=== PATIENT | female | born 1985 | race African-American/Black ===

== ENCOUNTER 2017-08-25 23:16 | Emergency (ER) | payer BC ==
[2017-08-25] MEDS ORDERED: DEXAMETHASONE 10 MG/ML VIAL ONE (23:56)
[2017-08-25] MEDS ORDERED: DIPHENHYDRAMINE 50 MG/ML VIAL ONE (23:56)
[2017-08-25] MEDS ORDERED: NA CHLORIDE 0.9% 1,000 ML ONE (23:56)
[2017-08-25] MEDS ORDERED: ONDANSETRON 4 MG/2 ML VIAL ONE (23:56)
[2017-08-26 00:09] LABS: Urine Blood NEGATIVE (NEG); Urine Glucose NEGATIVE (NEG); Urine Protein NEGATIVE (NEG); Urine pH 5.5 (5.0-7.0)
[2017-08-26 00:18] LABS: Urine Bacteria 20-50 /HPF (<20); Urine Culture Reflex Order REFLEXED; Urine RBC NONE SEEN /HPF (NONE SEEN)
[2017-08-26 00:30] LABS: Absolute Lymphocytes (CBC) 0.6 K/uL (0.7-4.9); Absolute Monocytes 0.3 K/uL (0.1-1.3); Absolute Neutrophil 10.1 K/uL (1.8-8.0); Basophils % 0.2 % (0-1.3); Eosinophils % 0.3 % (0-4.4); Hematocrit 35.1 % (36.0-45.0); Lymphocytes % 5.7 % (15.3-44.8); MCH 25.9 pg (27.0-35.0); MCV 79.5 fL (80-100); MPV 8.2 fL (7.6-11.3); RBC Red Blood Cell Count 4.41 M/uL (3.86-4.86)
[2017-08-26 00:44] LABS: Albumin 3.7 g/dL (3.2-5.5); Bilirubin Direct 0.1 mg/dL (0-0.2); Bilirubin Total 0.4 mg/dL (0.3-1.2)
[2017-08-26] MEDS ORDERED: IBUPROFEN 400 MG TAB ONE (02:34)
[2017-08-26 02:50] LABS: Blood Morphology Comment NOT SEEN (NOT SEEN); Platelet Estimate ADEQ; Urine White Blood Cell Casts OK
--- NOTE | 2017-08-26 02:59 | EDPHYS ---
Physician Documentation [facility] Name: Isela Styles Age: 32 yrs Sex: Female : 1985 Arrival Date: 08/25/2017 Time: 23:18 Bed 24 Private MD: Latha Pace Z ED Physician Macario Escamilla HPI: 08/25 23:40 This 32 yrs old Black Female presents to ER via Ambulatory with complaints of Allergic jmm Reaction. 23:40 The patient presents with rash, redness of skin, vomiting. Onset: The symptoms/episode jmm began/occurred acutely, just prior to arrival. Associated signs and symptoms: Pertinent positives: rash, shortness of breath, Pertinent negatives: fever. Patient states she developed vomiting, diarrhea, shortness of breath after ingestion of bactrim. . 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 - Social history:: Smoking status: Patient/guardian denies using tobacco. - Ebola Screening: : No symptoms or risks identified at this time. ROS: 08/26 02:41 Cardiovascular: Negative for chest pain, palpitations, and edema. jmm Skin: Negative for injury, rash, and discoloration, Neuro: Negative for headache, weakness, numbness, tingling, and seizure. Constitutional: Positive for body aches, chills. Respiratory: Positive for shortness of breath. Abdomen/GI: Positive for abdominal pain. Back: Negative for pain at rest. All other systems are negative. 02:43 Abdomen/GI: Positive for nausea and vomiting, diarrhea. jmm Exam: 08/25 23:45 Constitutional: This is a well developed, well nourished patient who is awake, alert, jmm and in no acute distress. Chest/axilla: Normal chest wall appearance and motion. Nontender with no deformity. No lesions are appreciated. 23:45 Cardiovascular: Rate: tachycardic. jmm 23:45 Abdomen/GI: Inspection: abdomen appears normal, Bowel sounds: normal, Palpation: abdomen is soft and non-tender, in all quadrants. 23:45 Musculoskeletal/extremity: ROM: intact in all extremities. 23:45 Skin: Appearance: Color: normal in color. 23:45 Neuro: Orientation: is normal, Mentation: is normal, Memory: is normal, Gait: is steady. Vital Signs: 23:30 BP 135 / 90; Pulse 131; Resp 20; Temp 100.0(TE); Pulse Ox 98% on R/A; Weight 126.1 kg ak1 (R); Height 5 ft. 4 in. (162.56 cm) (R); Pain 08/24; 08/26 00:28 BP 123 / 78; Pulse 117; Resp 18; Pulse Ox 99% on R/A; kr2 01:41 BP 114 / 63; Pulse 107; Resp 18; Pulse Ox 98% on R/A; mb3 02:25 BP 123 / 93; Pulse 112; Resp 18; Pulse Ox 99% on R/A; mb3 02:55 BP 118 / 76; Pulse 102; Resp 18; Pulse Ox 99% ; fc 08/25 23:30 Body Mass Index 47.72 (126.10 kg, 162.56 cm) ak1 MDM: 08/25 23:40 Patient medically screened. [facility] 23:45 Differential diagnosis: allergic reaction, gastroenteritis. Data reviewed: vital signs, [facility] nurses notes. 08/26 02:57 Counseling: I had a detailed discussion with the patient and/or guardian regarding: the [facility] historical points, exam findings, and any diagnostic results supporting the discharge/admit diagnosis, the presence of at least one elevated blood pressure reading (>120/80) during this emergency department visit, lab results, the need for outpatient follow up, to return to the emergency department if symptoms worsen or persist or if there are any questions or concerns that arise at home. Response to treatment: the patient's symptoms have markedly improved after treatment. 08/25 23:43 Order name: Amylase, Serum; Complete Time: 01: [facility] 08/25 23:43 Order name: Basic Metabolic Panel; Complete Time: 01: [facility] 08/25 23:43 Order name: CBC with Diff [facility] 08/25 23:43 Order name: Creatinine for Radiology; Complete Time: 01:03 [facility] 08/25 23:43 Order name: Hepatic Function; Complete Time: 01:03 [facility] 08/25 23:43 Order name: Lipase; Complete Time: 01:03 [facility] 08/25 23:43 Order name: Urine Microscopic Only; Complete Time: 01:03 [facility] 08/25 23:47 Order name: Urine Dipstick--Ancillary (enter results); Complete Time: 01:03 [place] 08/25 23:47 Order name: Urine --Ancillary (enter results); Complete Time: 01:03 [place] 08/26 00:19 Order name: Urine Culture [facility] 08/26 02:50 Order name: CBC Smear Scan [facility] 08/25 23:43 Order name: IV Saline Lock; Complete Time: 00:29 [facility] 08/25 23:43 Order name: Labs collected and sent; Complete Time: 00:29 [facility] 08/25 23:43 Order name: Urine Dipstick-Ancillary (obtain specimen); Complete Time: 23:52 [facility] 08/26 02:28 Order name: EKG - Nurse/Tech; Complete Time: 02:50 jm Administered Medications: 00:12 Drug: NS 0.9% 1000 ml Route: IV; Rate: 1 bolus; Site: right antecubital; kr2 01:35 Follow up: Response: No adverse reaction; IV Status: Completed infusion; IV Intake: mb3 1000ml 00:12 Drug: Dexamethasone 10 mg Route: IVP; Site: right antecubital; kr2 00:43 Follow up: Response: No adverse reaction kr2 01:37 Follow up: Response: No adverse reaction mb3 00:15 Drug: diphenhydrAMINE 12.5 mg Route: IVP; Site: right antecubital; kr2 00:44 Follow up: Response: No adverse reaction kr2 01:37 Follow up: Response: No adverse reaction mb3 00:17 Drug: Zofran 4 mg Route: IVP; Site: right antecubital; kr2 00:44 Follow up: Response: No adverse reaction kr2 01:36 Follow up: Response: No adverse reaction mb3 01:37 Follow up: Response: No adverse reaction mb3 01:26 Drug: NS 0.9% 1000 ml Route: IV; Rate: 1 bolus; Site: right antecubital; mb3 02:41 Follow up: Response: No adverse reaction; IV Status: Completed infusion; IV Intake: mb3 1000ml 02:35 Drug: Motrin 800 mg Route: PO; mb3 Disposition: 03:57 Co-signature as Attending Physician, Macario Escamilla MD. pkshawn Disposition: 08/26/17 02:58 Discharged to Home. Impression: Urinary tract infection, site not specified, Allergic Reaction. - Condition is Stable. - Discharge Instructions: Urinary Tract Infection. - Prescriptions for Cephalexin 500 mg Oral Capsule - take 1 capsule by ORAL route every 12 hours for 10 days; 20 capsule. Zofran 4 mg Oral Tablet - take 1 tablet by ORAL route every 12 hours As needed; 20 tablet. - Work release form, Family Work Release, Medication Reconciliation Form, Thank You Letter, Antibiotic Education, Prescription Opioid Use form. - Follow up: Private Physician; When: 2 - 3 days; Reason: Continuance of care. - Notes: Please follow up with your primary care provider for reevaluation. Please return to the ED if you develop worsening pain, chest pain, shortness of breath, vomiting, or any other concerning symptoms. Signatures: Dispatcher [employer] EDMS Macario Escamilla MD MD pkl Morgan Castillo PA PA jmm Krenek, Amber, RN RN ak1 Yamileth Honeycutt, RN RN kr2 Babatunde Sparks, RN RN mb3 Corrections: (The following items were deleted from the chart) 03:10 02:58 08/26/2017 02:58 Discharged to Home. Impression: Urinary tract infection, site mb3 not specified; Allergic Reaction. Condition is Stable. Forms are Medication Reconciliation Form, Thank You Letter, Antibiotic Education, Prescription Opioid Use. Follow up: Private Physician; When: 2 - 3 days; Reason: Continuance of care. tatum
--- NOTE | 2017-08-26 02:59 | ER ---
Nurse's Notes [facility] Name: Isela Styles Age: 32 yrs Sex: Female : 1985 Arrival Date: 08/25/2017 Time: 23:18 Bed 24 Private MD: Latha Pace Z Diagnosis: Urinary tract infection, site not specified;Allergic Reaction Presentation: 08/25 23:31 Presenting complaint: Patient states: she is on her second antibiotic for UTI s/s. pt ak1 c/o N/V and chest tightness after taking Bactrim tonight. pt continues to have burning with urination and pressure with urination. Transition of care: patient was not received from another setting of care. Onset: The symptoms/episode began/occurred acutely. Anaphylaxis evaluation, abdominal pain chest pain. Onset of symptoms is unknown. Risk Assessment: Do you want to hurt yourself or someone else? Patient reports no desire to harm self or others. Initial Sepsis Screen: Does the patient meet any 2 criteria? HR > 90 bpm. No. Patient's initial sepsis screen is negative. Does the patient have a suspected source of infection? No. Patient's initial sepsis screen is negative. Care prior to arrival: Bactrim. 23:31 Acuity: SILVIA 3 ak1 23:31 Method Of Arrival: Ambulatory ak1 Triage Assessment: 23:34 General: Appears in no apparent distress. Behavior is calm, cooperative. Pain: ak1 Complains of pain in chest, abdomen and pelvis. 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 - Social history:: Smoking status: Patient/guardian denies using tobacco. - Ebola Screening: : No symptoms or risks identified at this time. Screenin:34 Abuse screen: Denies threats or abuse. Denies injuries from another. Nutritional ak1 screening: No deficits noted. Tuberculosis screening: No symptoms or risk factors identified. Fall Risk None identified. Assessment: 23:34 Respiratory: Airway is patent Respiratory effort is even, unlabored. ak1 23:35 General: Appears in no apparent distress. uncomfortable, obese, well groomed, Behavior kr2 is calm, cooperative, appropriate for age. Pain: Complains of pain in pelvis Pain currently is 6 out of 10 on a pain scale. Quality of pain is described as burning, Is continuous, Alleviated by nothing. Neuro: Level of Consciousness is awake, alert, obeys commands, Oriented to person, place, time, situation, Appropriate for age. Cardiovascular: Capillary refill < 3 seconds in bilateral fingers Patient's skin is warm and dry. Cardiovascular: Reports she was having tightness in her chest about an hour after taking bactrim but it has passed. Respiratory: Breath sounds are clear bilaterally. GI: Abdomen is flat, non-distended, Bowel sounds present X 4 quads. Reports diarrhea, nausea, vomiting, after taking Bactrim dose. : Urine is clear, Reports burning with urination. EENT: Oral mucosa is moist. Derm: Skin is intact, is healthy with good turgor, Skin is pink, warm \T\ dry. Musculoskeletal: Circulation, motion, and sensation intact. 08/26 00:45 Reassessment: Patient appears in no apparent distress at this time. Patient and/or kr2 family updated on plan of care and expected duration. Pain level reassessed. Patient is alert, oriented x 3, equal unlabored respirations, skin warm/dry/pink. Patient denies pain at this time. 01:42 Reassessment: Patient appears in no apparent distress at this time. Patient and/or mb3 family updated on plan of care and expected duration. Pain level reassessed. Patient is alert, oriented x 3, equal unlabored respirations, skin warm/dry/pink. Patient denies pain at this time. 02:26 Reassessment: Patient appears in no apparent distress at this time. Patient and/or mb3 family updated on plan of care and expected duration. Pain level reassessed. Patient is alert, oriented x 3, equal unlabored respirations, skin warm/dry/pink. Patient denies pain at this time. Patient states feeling better. Vital Signs: 08/25 23:30 BP 135 / 90; Pulse 131; Resp 20; Temp 100.0(TE); Pulse Ox 98% on R/A; Weight 126.1 kg ak1 (R); Height 5 ft. 4 in. (162.56 cm) (R); Pain /10; 08/26 00:28 BP 123 / 78; Pulse 117; Resp 18; Pulse Ox 99% on R/A; kr2 01:41 BP 114 / 63; Pulse 107; Resp 18; Pulse Ox 98% on R/A; mb3 02:25 BP 123 / 93; Pulse 112; Resp 18; Pulse Ox 99% on R/A; mb3 02:55 BP 118 / 76; Pulse 102; Resp 18; Pulse Ox 99% ; fc 08/25 23:30 Body Mass Index 47.72 (126.10 kg, 162.56 cm) ak1 ED Course: 08/25 23:18 Patient arrived in ED. es 23:21 Latha Pace MD is Private Physician. es 23:25 [facility] 23:25 Macario Escamilla MD is Attending Physician. [facility] 23:33 Triage completed. ak1 23:34 Arm band placed on Patient placed in an exam room, on a stretcher, Patient notified of ak1 wait time. 23:51 Yamileth Honeycutt, INGRID is Primary Nurse. kr2 08/26 00:05 Missed attempt(s): 22 gauge in left antecubital area. Bleeding controlled, band aid kr2 applied, catheter tip intact. 00:10 Inserted saline lock: 22 gauge in right antecubital area, using aseptic technique. kr2 Blood collected. 00:27 Patient has correct armband on for positive identification. Bed in low position. Call kr2 light in reach. Side rails up X 1. Pulse ox on. NIBP on. Door closed. Warm blanket given. Pillow given. Head of bed elevated. 03:09 No provider procedures requiring assistance completed. IV discontinued, intact, mb3 bleeding controlled, No redness/swelling at site. Pressure dressing applied. Administered Medications: 00:12 Drug: NS 0.9% 1000 ml Route: IV; Rate: 1 bolus; Site: right antecubital; kr2 01:35 Follow up: Response: No adverse reaction; IV Status: Completed infusion; IV Intake: mb3 1000ml 00:12 Drug: Dexamethasone 10 mg Route: IVP; Site: right antecubital; kr2 00:43 Follow up: Response: No adverse reaction kr2 01:37 Follow up: Response: No adverse reaction mb3 00:15 Drug: diphenhydrAMINE 12.5 mg Route: IVP; Site: right antecubital; kr2 00:44 Follow up: Response: No adverse reaction kr2 01:37 Follow up: Response: No adverse reaction mb3 00:17 Drug: Zofran 4 mg Route: IVP; Site: right antecubital; kr2 00:44 Follow up: Response: No adverse reaction kr2 01:36 Follow up: Response: No adverse reaction mb3 01:37 Follow up: Response: No adverse reaction mb3 01:26 Drug: NS 0.9% 1000 ml Route: IV; Rate: 1 bolus; Site: right antecubital; mb3 02:41 Follow up: Response: No adverse reaction; IV Status: Completed infusion; IV Intake: mb3 1000ml 02:35 Drug: Motrin 800 mg Route: PO; mb3 Intake: 01:35 IV: 1000ml; Total: 1000ml. mb3 02:41 IV: 1000ml; Total: 2000ml. mb3 Outcome: 02:58 Discharge ordered by MD. winn 03:09 Discharged to home ambulatory. mb3 03:09 Condition: stable 03:09 Discharge instructions given to patient, Instructed on discharge instructions, follow up and referral plans. medication usage, Demonstrated understanding of instructions, follow-up care, medications, Prescriptions given X 2. 03:10 Patient left the ED. mb3 Signatures: Morgan Castillo PA PA jmm Salyer, Edna es Chretien, Felicia, RN RN fc Krenek, Amber RN RN [email or web address] aYmileth Honeycutt RN RN [email or web address] Babatunde Sparks RN RN mb3
--- NOTE | 2017-08-26 14:42 | EKG ---
Test Date: 2017-08-26 Test Time: 02:46:26 [employer] Well Dr[employer] Manager: BRANDI MEASUREMENT RESULTS: Intervals: Rate: 105 MA: 128 QRSD: 72 QT: 350 QTc: 462 Campbell: P: 44 MA: 128 QRS: 14 T: 17 INTERPRETIVE STATEMENTS: Sinus tachycardia Otherwise normal ECG No previous ECG available for comparison Electronically Signed On 08-26-17 14:40:10 CDT by Alfredo Gardner
== END 2017-08-26 03:10 | disposition home or self-care (01) ==
LOC: ER 23:16
DX: N39.0 Urinary tract infection, site not specified (principal); T78.40XA Allergy, unspecified, initial encounter; X58.XXXA Exposure to other specified factors, initial encounter
CPT/HCPCS: 36415; 80048; 80076; 81003; 81015; 81025; 82150; 83690; 85025; 87086; 87088; 93005; 96361; 96374; 96375; 99284; J1100; J2405; J7030

== ENCOUNTER 2023-01-18 22:13 | Emergency (ER) | payer BC, SELFPAY ==
--- OUTSIDE RECORDS SUMMARY | 2023-01-18 22:16 | XMS REPORT | Continuity of Care Document ---
:1985 Author Organization [facility] t Address [address] [place] [address] Care Team Providers Name Role Phone JORY BONILLA Attending Clinician Unavailable Jory Bonilla Attending Clinician Unavailable [facility] Attending Clinician Unavailable [facility] Attending Clinician Unavailable UNKNOWN Attending Clinician Unavailable JORY BONILLA Admitting Clinician Unavailable Physician, No Primary or Family Admitting Clinician Unavaila ble [facility] Admitting Clinician Unavailable [facility] Admitting Clinician Unavailable Payers Payer Name Policy Type Policy Number Effective Date Expiration Date formerly [facility] [id number] 2022 00:00:00 Problems This patient has no known problems. Allergies, Adverse Reactions, Alerts Allergy Allergy Status Severity Reaction(s) Onset Inactive Treating Comm ents Source Name Type Date Date Clinician sulfamet DA Active U 2020-0 [facility] hoxazole 09-22 [place] [facility] 00 are [facility] trimetho DA Active U 2020-0 [facility] prim 09-22 [place] 00:[facility]: [facility] 00 [facility] sulfamet DA Active U NAUSEA, [facility] [place] 00 are [facility] trimetho DA Active U NAUSEA, [facility] prim DIARRHEA 09-22 [place] 00:00: [facility] 00 [facility] Medications This patient has no known medications. Procedures This patient has no known procedures. Encounters Start End Encounter Admission Attending Care Care Encounter Source Date/Time Date/Time Type Type Clinicians Facility Department ID 2020-01-19 Inpatient [facility] [id number] [facility] 12:19:11 , JORY 2019-10-11 Inpatient [facility] ENDO [id number] [facility] 07:30:00 , [facility] 2022-06-07 2022-06-07 Outpatient [facility] PRIV [id number] [facility] 00:00:00 00:00:00 [facility] [id number] [facility] 2022-06-05 2022-06-05 Outpatient [facility] PR[facility] PRIV [id number] [facility] 00:00:00 00:00:00 [facility] [id number] Medica l 2022-05-08 2022-05-08 Outpatient [facility] PRIV PRIV [id number] [facility] 00:00:00 00:00:00 [facility]S [id number] Medica l 2022-04-10 2022-04-10 Outpatient [facility] PRIV PRIV [id number] [facility] 00:00:00 00:00:00 [facility]_S [id number] Medica l 2022-04-01 2022-04-01 Outpatient [facility]_ PRIV PRIV [id number] [facility] 00:00:00 00:00:00 [place] [id number] Medi eric 2019-09-23 2019-09-23 Outpatient UNKNOWN [facility]O [id number] [facility] 14:59:00 14:59:[address] [place] [address] Results Test Description Test Time Test Comments Results Result Comments Source Novel Coronavirus 2018 Inhouse 2019-09-24 14:19:00 Test Item Value Reference Range Interpretation Comme nts Novel Coronavirus 2018 Inhouse (test code = COVNONPUI) Negative Negative Testing Criteria: Preprocedure ScreeningNovel Coronavirus 2019 [id number] 14:19:00 Test Item Value Reference Range Interpretation Comments [facility] Negative code = COVNONPUI) Testing Criteria: Preprocedure Screening
[2023-01-18] MEDS ORDERED: NA CHLORIDE 0.9% 1,000 ML ONE (22:51)
[2023-01-18] MEDS ORDERED: KETOROLAC 30 MG/ML INJ ONE (22:51)
[2023-01-18] MEDS ORDERED: METOCLOPRAMIDE 10 MG/2mL INJ ONE (22:51)
[2023-01-18 23:07] LABS: Absolute Lymphocytes (CBC) 2.1 K/uL (0.7-4.9); Hematocrit 28.9 % (36.0-45.0); Lymphocytes % 37.1 % (15.3-44.8); MCV 83.4 fL (80-100); MPV 8.2 fL (7.6-11.3); Platelets 289 thou/uL (152-406); RBC Red Blood Cell Count 3.46 M/uL (3.86-4.86)
[2023-01-18 23:10] LABS: Protime INR 1.09
--- NOTE | 2023-01-18 23:19 | RAD REPORT ---
EXAM DESCRIPTION: CT - Head Brain Wo Cont - 01/18/2023 11:10 pm CLINICAL HISTORY: SYNCOPE COMPARISON: No comparisons TECHNIQUE: All CT scans are performed using dose optimization technique as appropriate and may inclu de automated exposure control or mA/KV adjustment according to patient size. FINDINGS: No intracranial hemorrhage, hydrocephalus or extra-axial fluid collection.No areas of brai n edema or evidence of midline shift. The paranasal sinuses and mastoids are clear. The calvarium is intact. IMPRESSION: No acute intracranial abnormality.
[2023-01-18 23:22] LABS: ALT/SGPT 30 U/L (13-56); AST/SGOT 17 U/L (15-37); Albumin 2.8 g/dL (3.4-5.0); Alkaline Phosphatase 67 U/L (45-117); BUN Blood Urea Nitrogen 11 mg/dL (7-18); Bicarbonate 25 mEq/L (21-32); Bilirubin Total 0.3 mg/dL (0.2-1.0); Glomerular Filtration Rate 105 ml/min (=/>90); Glucose Level 71 mg/dL (74-106); Magnesium 2.3 mg/dL (1.6-2.4); Potassium 3.7 mEq/L (3.5-5.1); Protein, Total 6.1 g/dL (6.4-8.2); Sodium Level 139 mEq/L (136-145); Troponin High Sensitivity 3.7 pg/mL (<58.9)
[2023-01-18 23:32] LABS: Bilirubin Direct < 0.1 mg/dL (0-0.2); Bilirubin Indirect, Calculated ND mg/dL (0.2-0.8)
[2023-01-19 00:44] LABS: Specific Gravity 1.014 (1.005-1.030)
[2023-01-19 00:59] LABS: Specific Gravity 1.014 (1.005-1.030); Urine Bacteria None Seen /HPF (<20); Urine Bilirubin NEGATIVE (Negative); Urine Blood Negative (Negative); Urine Clarity Clear (Clear); Urine Color Light-Yellow (Yellow); Urine Glucose NEGATIVE (Negative); Urine Mucus Slight /HPF (None Seen); Urine Protein NEGATIVE (Negative); Urine RBC <5 /HPF (None Seen); Urine Urobilinogen Normal (Normal)
--- NOTE | 2023-01-19 01:05 | EDPHYS ---
Physician Documentation [facility] Name: Isela Styles Age: 37 yrs Sex: Female : 1985 Arrival Date: 01/18/2023 Time: 22:13 Bed 21 Private MD: ED Physician Syed Oleary HPI: 01/18 22:20 This 37 yrs old Black Female presents to ER via Unassigned with complaints of syncope. sp4 01/19 01:48 37-year-old female presents with abrupt onset of syncope at home with associated sp4 hypotensive episode. EMS was brought to the scene patient reportedly passed out on the way to the bathroom fallen down and passing out for a few seconds. Patient's blood pressure by EMS was 88/62 with repeat pressure on standing up 68/40. Patient blood sugar was 72 at the scene. Patient arrived here with IV fluids ongoing. On arrival blood pressure is low but stable 93/60. Patient is basically healthy states there is no unusual medical problems denied tobacco alcohol or drug use. . - Family history:: not pertinent. ROS: 01:48 Constitutional: Negative for fever, chills, and weight loss, positive syncope, positive sp4 head injury, positive dizziness 01:48 All other systems are negative, Exam: 01:48 Constitutional: This is a well developed, well nourished patient who is awake, alert, sp4 and in no acute distress. Head/Face: Normocephalic, atraumatic. Eyes: Pupils equal round and reactive to light, extra-ocular motions intact. Lids and lashes normal. Conjunctiva and sclera are not injected. Cornea within normal limits. Periorbital areas with no swelling, redness, or edema. ENT: Nares patent. No nasal discharge, no septal abnormalities noted. Tympanic membranes are normal and external auditory canals are clear. Oropharynx with no redness, swelling, or masses, exudates, or evidence of obstruction, uvula midline. Mucous membranes moist. Neck: Trachea midline, no thyromegaly or masses palpated, and no cervical lymphadenopathy. Supple, full range of motion without nuchal rigidity, or vertebral point tenderness. Chest/axilla: Normal chest wall appearance and motion. Nontender with no deformity. No lesions are appreciated. Cardiovascular: Regular rate and rhythm with a normal S1 and S2. No gallops, murmurs, or rubs. Normal PMI, no JVD. No pulse deficits. Respiratory: Lungs have equal breath sounds bilaterally, clear to auscultation and percussion. No rales, rhonchi or wheezes noted. No increased work of breathing, no retractions or nasal flaring. Abdomen/GI: Soft, non-tender, with normal bowel sounds. No distension or tympany. No guarding or rebound. No evidence of tenderness throughout. Back: No spinal tenderness. No costovertebral tenderness. Skin: Warm, dry with normal turgor. Normal color with no rashes, no lesions, and no evidence of cellulitis. MS/ Extremity: Pulses equal, no cyanosis. Neurovascular intact. Full, normal range of motion. Neuro: Awake and alert, GCS 15, oriented to person, place, time, and situation. Cranial nerves II-XII grossly intact. Motor strength 5/5 in all extremities. Sensory grossly intact. Psych: Awake, alert, with orientation to person, place and time. Behavior, mood, and affect are within normal limits 01:50 ECG was reviewed by the Attending Physician. There is EKG at 2351 with a heart rate of sp4 74 bpm normal sinus rhythm normal EKG Vital Signs: 01/18 22:15 BP 92 / 68; Pulse 78; Resp 16; Pulse Ox 100% ; la4 22:30 BP 93 / 67; Pulse 71; Resp 16; Pulse Ox 100% ; la4 22:38 BP 93 / 68; Pulse 80; Resp 16; Temp 98.4(O); Pulse Ox 100% on R/A; Weight 78.47 kg; la4 Height 5 ft. 4 in. ; Pain 0/10; 22:46 BP 114 / 91; Pulse 75; Resp 16; Pulse Ox 100% ; la4 01/19 00:30 BP 103 / 79; Pulse 80; Resp 16; Pulse Ox 100% ; la4 01:00 BP 100 / 74; Pulse 76; Resp 16; Pulse Ox 100% ; la4 01:30 BP 94 / 61; Pulse 76; Resp 16; Pulse Ox 100% ; la4 01:40 BP 103 / 71; Pulse 74; Resp 18; Pulse Ox 100% ; la4 01/18 22:38 Body Mass Index 29.70 (78.47 kg, 162.56 cm) la4 22:38 Pain Scale: Adult la4 Bryce Coma Score: 01/18 22:15 Eye Response: spontaneous(4). Motor Response: obeys commands(6). Verbal Response: la4 oriented(5). Total: 15. MDM: 22:28 Patient medically screened. 4 01/19 01:01 Differential Diagnosis altered mental status, sepsis, flu. Data reviewed: vital signs, sp4 nurses notes, EMS record, lab test result(s), EKG, radiologic studies, CT scan. Consideration of Admission/Observation Escalation of care including admission/observation considered. ED course: CT - EXAM DESCRIPTION: Chest Single View CLINICAL HISTORY:37 years Female, syncope Comparison: None FINDINGS: No focal lung consolidation. No pleural effusion. No pneumothorax. Cardiomediastinal silhouette is within normal limits. No acute osseous abnormality. IMPRESSION: No acute cardiopulmonary disease. . ED course: Health profile today is unremarkable except hemoglobin slightly decreased at 9.8. Patient reports history of heavy periods. Blood pressure on the repeat orthostatic vital check is pretty good 96/71 with heart rate of 72. ED course: On standing patient's blood pressure does decrease slightly but the heart rate remained stable. At this time we see no impedance for discharge home. Will refer to primary care physician Dr. Iraheta for hemoglobin repeat check in the office. At this time no additional recommendations except for bedrest for the next 3 days. Return to the emergency room for any syncope or recurrence . Patient may benefit from visit to computer operations specialist for stress test and echocardiogram . . 01/18 22:22 Order name: Basic Metabolic Panel; Complete Time: 01:00 4 01/18 22:22 Order name: CBC with Diff; Complete Time: 01:00 sp4 01/18 22:22 Order name: Hepatic Function; Complete Time: 01:00 sp4 01/18 22:22 Order name: Magnesium; Complete Time: 01:00 sp4 01/18 22:22 Order name: Test, Urine; Complete Time: 01:00 4 01/18 22:22 Order name: Protime (+inr); Complete Time: 01:00 4 01/18 22:22 Order name: Ptt, Activated; Complete Time: 01:00 4 01/18 22:22 Order name: Troponin High Sensitivity; Complete Time: 01:00 4 01/18 22:22 Order name: UDS; Complete Time: 01:39 sp4 01/18 22:22 Order name: Urinalysis w/ reflexes; Complete Time: 01:00 sp4 01/18 22:28 Order name: Influenza Screen (a \T\ B); Complete Time: 01:00 sp4 01/18 22:28 Order name: COVID-19 SARS RT PCR; Complete Time: 01:00 sp4 01/18 22:28 Order name: TSH; Complete Time: 01:00 sp4 01/18 22:22 Order name: CT Head Brain wo Cont; Complete Time: 01:00 sp4 01/18 22:22 Order name: Chest Single View XRAY sp4 01/18 22:22 Order name: EKG; Complete Time: 22:22 sp4 01/18 22:22 Order name: Cardiac monitoring; Complete Time: 01:14 sp4 01/18 22:22 Order name: EKG - Nurse/Tech; Complete Time: 01:14 sp4 01/18 22:22 Order name: IV Saline Lock; Complete Time: 22:48 sp4 01/18 22:22 Order name: Labs collected and sent; Complete Time: 22:48 sp4 01/18 22:22 Order name: NPO; Complete Time: 22:48 sp4 01/18 22:22 Order name: O2 Per Protocol; Complete Time: 22:48 sp4 01/18 22:22 Order name: O2 Sat Monitoring; Complete Time: 22:48 sp4 EC:50 Rate is 74 beats/min. Rhythm is regular, Normal Sinus Rhythm. QRS [place] is Normal. [place] sp4 interval is normal. QRS interval is normal. QT interval is normal. No Q waves. T waves are Normal. No ST changes noted. Clinical impression: Normal ECG. Reviewed by me. Administered Medications: 01/18 22:48 Drug: NS 0.9% IV 1000 ml IV at 1 bolus Per protocol; 1000 mL bolus Route: IV; Rate: 1 me1 bolus; Site: left antecubital; 22:48 Drug: Ketorolac IVP 30 mg IVP once Route: IVP; Site: left antecubital; me1 01/19 01:14 Follow up: Response: No adverse reaction lg3 01/18 22:48 Drug: metoCLOPramide IVP 10 mg IVP once; over 1 to 2 minutes Route: IVP; Site: left me1 antecubital; 01/19 01:14 Follow up: Response: No adverse reaction lg3 Disposition Summary: 01/19/23 01:04 Discharge Ordered Problem: new sp4 Symptoms: have improved sp4 Condition: Stable sp4 Diagnosis - Syncope and collapse, hypotensive episode, history of menorrhagia, mild anemia sp4 Followup: sp4 - With: Ben Mckeon MD - When: 7 - 10 days - Reason: Recheck today's complaints Followup: sp4 - With: Jayesh Iraheta DO - When: 7 - 10 days - Reason: Recheck today's complaints Discharge Instructions: - Discharge Summary Sheet sp4 - Syncope, [id number] sp4 Forms: - Patient Portal Instructions sp4 Signatures: Dispatcher [employer] Syed Hare MD MD sp4 Aline Thomas RN RN me1 Yamel Sanchez RN lg3
--- NOTE | 2023-01-19 01:05 | ER ---
Nurse's Notes [facility] Name: Isela Styles Age: 37 yrs Sex: Female : 1985 Arrival Date: 01/18/2023 Time: 22:13 Bed 21 Private MD: Diagnosis: Syncope and collapse, hypotensive episode, history of menorrhagia, mild anemia Presentation: 01/18 22:38 Chief complaint: Patient states: syncope. Chief complaint: EMS states: Syncope prior to la4 arrival with + LOC. Denies injury to head, Initial BP 88/62 sitting w/ BP of 68/40 w/ standing. HR remained 75-80 per reports. Pt diaphoretic w/ standing. Placed on 2LNC due to shallow breathing only. ECG NSR. 22:38 Method Of Arrival: EMS: [facility] la4 22:38 Coronavirus screen: Vaccine status: Patient reports receiving the 2nd dose of the covid la4 vaccine. Client denies travel out of the [place] in the last 14 days. At this time, the client does not indicate any symptoms associated with coronavirus-19. Ebola Screen: No symptoms or risks identified at this time. Initial Sepsis Screen: Does the patient meet any 2 criteria? No. Patient's initial sepsis screen is negative. Does the patient have a suspected source of infection? No. Patient's initial sepsis screen is negative. Risk Assessment: Do you want to hurt yourself or someone else? Patient reports no desire to harm self or others. Onset of symptoms was January 18, 2023. 22:38 Acuity: SILVIA 2 la4 Triage Assessment: 22:38 General: Appears in no apparent distress. Behavior is calm, cooperative, appropriate la4 for age. Pain: Denies pain. Neuro: No deficits noted. Palmer Agitation-Sedation Scale (RASS): 0 - Alert and Calm Level of Consciousness is awake, alert, obeys commands, Oriented to person, place, time, situation, Clerical And Office Support Workers are equal bilaterally. Cardiovascular: No deficits noted. Denies chest pain, Heart tones S1 S2 Capillary refill < 3 seconds is brisk. Respiratory: No deficits noted. Breath sounds are clear bilaterally. GI: No deficits noted. : No deficits noted. Derm: No deficits noted. - Family history:: not pertinent. Screenin/05 01:48 [facility] ED Fall Risk Assessment (Adult) History of falling in the last 3 months, la4 including since admission Yes- physiologic fall (2 pts) Confusion or Disorientation No (0 pts) Intoxicated or Sedated No (0 pts) Impaired Gait No (0 pts) Mobility Assist Device Used No (0 pt) Altered Elimination No (0 pt) Score/Fall Risk Level 3 or more points = High Risk. Abuse screen: Denies threats or abuse. Denies injuries from another. Nutritional screening: No deficits noted. Tuberculosis screening: No symptoms or risk factors identified. Assessment: 01:48 General: Appears in no apparent distress. Behavior is calm, cooperative, appropriate la4 for age. 01:48 Pain: Denies pain. Neuro: No deficits noted. Palmer Agitation-Sedation Scale (RASS): la4 0 - Alert and Calm. Cardiovascular: Reports syncope, Denies chest pain, Heart tones S1 S2 Capillary refill < 3 seconds is brisk Pulses are all present. Edema is absent. Rhythm is sinus rhythm. Respiratory: No deficits noted. GI: No deficits noted. : No deficits noted. Vital Signs: 01/18 22:15 BP 92 / 68; Pulse 78; Resp 16; Pulse Ox 100% ; la4 22:30 BP 93 / 67; Pulse 71; Resp 16; Pulse Ox 100% ; la4 22:38 BP 93 / 68; Pulse 80; Resp 16; Temp 98.4(O); Pulse Ox 100% on R/A; Weight 78.47 kg; la4 Height 5 ft. 4 in. ; Pain 0/10; 22:46 BP 114 / 91; Pulse 75; Resp 16; Pulse Ox 100% ; la4 01/19 00:30 BP 103 / 79; Pulse 80; Resp 16; Pulse Ox 100% ; la4 01:00 BP 100 / 74; Pulse 76; Resp 16; Pulse Ox 100% ; la4 01:30 BP 94 / 61; Pulse 76; Resp 16; Pulse Ox 100% ; la4 01:40 BP 103 / 71; Pulse 74; Resp 18; Pulse Ox 100% ; la4 01/18 22:38 Body Mass Index 29.70 (78.47 kg, 162.56 cm) la4 22:38 Pain Scale: Adult la4 Vitals: 01/18 22:15 Cardiac Rhythm Assessment Regular Sinus rhythm. Cardiac Rhythm Assessment Regular. la4 Phillip Coma Score: 22:15 Eye Response: spontaneous(4). Motor Response: obeys commands(6). Verbal Response: la4 oriented(5). Total: 15. ED Course: 22:17 Patient arrived in ED. rv1 22:20 Syed Oleary MD is Attending Physician. sp4 22:30 Miguelito Larios, RN is Primary Nurse. la4 22:48 TSH Sent. me1 22:48 COVID-19 SARS RT PCR Sent. me1 22:48 Influenza Screen (a \T\ B) Sent. me1 22:48 Basic Metabolic Panel Sent. me1 22:48 CBC with Diff Sent. me1 22:48 Hepatic Function Sent. me1 22:48 Magnesium Sent. me1 22:48 Test, Urine Sent. me1 22:49 Protime (+inr) Sent. me1 22:49 Ptt, Activated Sent. me1 22:49 Troponin High Sensitivity Sent. me1 22:49 UDS Sent. me1 22:49 Urinalysis w/ reflexes Sent. me1 22:50 No provider procedures requiring assistance completed. la4 22:55 Triage completed. la4 22:57 Chest Single View XRAY In Process Unspecified. EDMS 23:10 CT Head Brain wo Cont In Process Unspecified. EDMS 01/19 01:03 Ben Mckeon MD is Referral Physician. sp4 01:04 Jayesh Iraheta DO is Referral Physician. sp4 01:48 Patient has correct armband on for positive identification. Bed in low position. Call la4 light in reach. Side rails up X2. Provided Education on: plan of care. 01:50 IV discontinued, intact, bleeding controlled, No redness/swelling at site. Pressure la4 dressing applied. Administered Medications: 01/18 22:48 Drug: NS 0.9% IV 1000 ml IV at 1 bolus Per protocol; 1000 mL bolus Route: IV; Rate: 1 me1 bolus; Site: left antecubital; 22:48 Drug: Ketorolac IVP 30 mg IVP once Route: IVP; Site: left antecubital; me1 01/19 01:14 Follow up: Response: No adverse reaction lg3 01/18 22:48 Drug: metoCLOPramide IVP 10 mg IVP once; over 1 to 2 minutes Route: IVP; Site: left me1 antecubital; 01/19 01:14 Follow up: Response: No adverse reaction lg3 Outcome: 01:04 Discharge ordered by MD. ying 02:14 Patient left the ED. la4 Signatures: Dispatcher [employer] Yamel Campos RN RN lg3 Jocelyn Cali rv1 Syed Oleary MD MD sp4 Aline Thomas RN RN md1 Miguelito Larios RN RN ut4
[2023-01-19 01:10] LABS: Barbiturates NEGATIVE (NEGATIVE); Benzodiazepines NEGATIVE (NEGATIVE); Cocaine NEGATIVE (NEGATIVE); METHAMPHETAM NEGATIVE (NEGATIVE); Methadone NEGATIVE (NEGATIVE); Opiates NEGATIVE (NEGATIVE); Phencyclidine NEGATIVE (NEGATIVE); THC Cannibis POSITIVE (NEGATIVE)
[2023-01-19 02:23] VITALS: O2SAT 100
[2023-01-19 02:26] VITALS: TEMP 98.4
[2023-01-19 02:35] VITALS: BP 103/71
--- NOTE | 2023-01-19 14:38 | RAD REPORT ---
EXAM DESCRIPTION: RAD - Chest Single View - 01/18/2023 10:55 pm CLINICAL HISTORY: 7 years Female, syncope COMPARISON: None FINDINGS: No focal lung consolidation. No pleural effusion. No pneumothorax. Cardiomediastinal silhouette is within normal limits. No acute osseous abnormality. IMPRESSION: No acute cardiopulmonary disease. Electronically signed by: Dayron King DO 01/18/2023 11:31 PM CDT Due to temporary technical issues with the PACS/Fluency reporting system, reports are being signed by the in house radiologists without review as a courtesy to insure prompt reporting. The interpreting radiologist is fully responsible for the content of the report.
--- NOTE | 2023-01-25 14:38 | EKG ---
Test Date: 2023-01-18 Test Time: 23:51:43 Shop Laborer: DAWOOD MEASUREMENT RESULTS: Intervals: Rate: 74 AK: 132 QRSD: 82 QT: 418 QTc: 463 [place]: P: 44 AK: 132 QRS: 36 T: 36 INTERPRETIVE STATEMENTS: Normal sinus rhythm Normal ECG Compared to ECG 08/26/2017 02:46:26 Sinus tachycardia no longer present Electronically Signed On 01-25-23 14:19:13 MORTUARY BEAUTICIAN by Ben Mckeon
== END 2023-01-19 02:14 | disposition home or self-care (01) ==
LOC: ER 22:13
DX: R55 Syncope and collapse (principal); I95.9 Hypotension, unspecified; D64.9 Anemia, unspecified; N92.0 Excessive and frequent menstruation with regular cycle; Z11.52 Encounter for screening for COVID-19
CPT/HCPCS: 36415; 70450; 71045; 80048; 80076; 80307; 81001; 81025; 83735; 84443; 84484; 85025; 85610; 85730; 87635; 87804; 93005; 96374; 96375; 99284; J2765; J7030